=== PATIENT | female | born 1985 | race Caucasian/White ===

== ENCOUNTER 2018-10-27 03:38 | Emergency (ER) | payer OTHER ==
[2018-10-27 03:49] VITALS: BMI 24.1
[2018-10-27 03:50] VITALS: O2SAT 100
[2018-10-27] MEDS ORDERED: Sodium Chloride 0.9% 1,000 ML IV STA (04:01)
[2018-10-27] MEDS ORDERED: Morphine 2 mg/ml ISec IVP STA (04:01)
[2018-10-27 04:23] LABS: HEMOGLOBIN 11.2 g/dL (12.0-16.0); MEAN CELL VOLUME 82.1 fl (80.0-105.0); MEAN CORPUSCULAR HEMOGLOBIN 27.5 pg (25.0-35.0); MEAN CORPUSCULAR HGB CONC 33.4 g/dl (31.0-37.0); MEAN PLATELET VOLUME 10.8 fl (7.0-11.0); RBC 4.08 10^6/uL (3.5-6.1); RED CELL DISTRIBUTION WIDTH 13.8 % (11.5-14.5); WHITE BLOOD COUNT 7.2 10^3/uL (4.5-11.0)
[2018-10-27 04:31] LABS: ALB/GLOB RATIO 1.3 (1.1-1.8); ALBUMIN 4.3 g/dL (3.0-4.8); ALT/SGPT 12 U/L (7-56); AST/SGOT 25 U/L (14-36); BLOOD UREA NITROGEN 12 mg/dL (7-21); CALCIUM 9.5 mg/dL (8.4-10.5); GFR NON-AFRICAN AMERICAN > 60
--- NOTE | 2018-10-27 05:01 | ED PDOC ---
Arrival/HPI - General Chief Complaint: Female Genitourinary Time Seen by Provider: 10/27/18 03:56 Historian: Patient - History of Present Illness Narrative History of Present Illness (Text): 10/27/18 04:58 33 year old female, who is , and currently 5-6 weeks , presents to the emergency department with pelvic cramping and vaginal bleeding. Patient's states she was seen by her funeral director/embalmer a week prior and was told there was no heart beat after US was performed. Patient denies any fever or chills. Patient also denies any headache, dizziness, chest pain, shortness of breath, cough, or any other complaint. Time/Duration: Prior to Arrival Symptom Onset: Gradual Symptom Course: Unchanged Quality: Cramping Activities at Onset: Light Context: Home Past Medical History - Provider Review Nursing Documentation Reviewed: Yes - Cardiac Hx Cardiac Disorders: No - Psychiatric Hx Substance Use: No - Anesthesia Hx Anesthesia: No Family/Social History - Physician Review Nursing Documentation Reviewed: Yes Family/Social History: No Known Family HX Smoking Status: Never Smoked Hx Alcohol Use: No Hx Substance Use: No Allergies/Home Meds Allergies/Adverse Reactions: Allergies No Known Allergies Allergy (Verified 10/27/18 03:49) Home Medications: Home Meds Medication Instructions Recorded Confirmed No Known Home Med 10/27/18 10/27/18 Review of Systems - Physician Review All systems were reviewed & negative as marked: Yes - Review of Systems Constitutional: absent: Fevers, Night Sweats Respiratory: absent: SOB, Cough Cardiovascular: absent: Chest Pain Gastrointestinal: Abdominal Pain Genitourinary Female: Vaginal Bleeding Neurological: absent: Headache, Dizziness Physical Exam Vital Signs Reviewed: Yes Vital Signs Temp Pulse Resp BP Pulse Ox 10/27/18 04:18 122/73 10/27/18 03:48 97.9 F 84 20 98/74 L 100 Temperature: Afebrile Blood Pressure: Hypotensive Pulse: Regular Respiratory Rate: Normal Appearance: Positive for: Well-Appearing, Non-Toxic, Comfortable Pain Distress: None Mental Status: Positive for: Alert and Oriented X 3 - Systems Exam Head: Present: Atraumatic, Normocephalic Pupils: Present: PERRL Extroacular Muscles: Present: EOMI Conjunctiva: Present: Normal Mouth: Present: Moist Mucous Membranes Neck: Present: Normal Range of Motion Respiratory/Chest: Present: Clear to Auscultation, Good Air Exchange. No: Respiratory Distress, Accessory Muscle Use Cardiovascular: Present: Regular Rate and Rhythm, Normal S1, S2. No: Murmurs Abdomen: No: Tenderness, Distention, Peritoneal Signs Genitourinary/Pelvic Exam: Present: Normal External Genitalia, Cervical os Closed. No: Vaginal Discharge, Vaginal Bleeding, Cervical Motion Tendernes Back: Present: Normal Inspection Upper Extremity: Present: Normal Inspection. No: Cyanosis, Edema Lower Extremity: Present: Normal Inspection. No: Edema Neurological: Present: GCS=15, CN II-XII Intact, Speech Normal, Motor Func Grossly Intact, Normal Sensory Function Skin: Present: Warm, Dry, Normal Color. No: Rashes Psychiatric: Present: Alert, Oriented x 3, Normal Insight, Normal Concentration Medical Decision Making ED Course and Treatment: 10/27/18 05:02 Impression: 33 year old female presents with vaginal bleeding and cramping Plan: -- Labs -- Morphine -- Transvaginal US -- Reassess and disposition Prior Visits: Notes and results from previous visits were reviewed. Progress Notes: 10/27/18 05:42 Obstetric ultrasound, transvaginal. Indication: Bleeding. Technique: Real-time ultrasound images are obtained. Findings: The uterus is normal in size measuring 10x5.7x8.9 cm. Anteverted uterus. Cervical length measures 4.3 cm. Intrauterine gestational sac. Mean gestational sac diameter is 3.1 cm. This corresponds to an estimated gestational age of 8 weeks. The yolk sac measures 2.1 mm. No evidence of pole. No free fluid in the pelvic cul-de-sac. Unremarkable ovaries. Impression: Single, intrauterine gestation. No abnormalities seen. 10/27/18 06:35 Patient with relief of symptoms in ED with normal vital signs.Case was discussed with GSE MECHANIC covering for patients GSE MECHANIC .Patient findings are strongly suggestive of missed as was suggested to her on her previous visit to . recommends patient follow up with todays scheduled appointment at office. - Lab Interpretations Lab Results: Total Bilirubin 1.0 mg/dL (0.2-1.3) 10/27/18 04:05 AST 25 U/L (14-36) 10/27/18 04:05 ALT 12 U/L (7-56) 10/27/18 04:05 Alkaline Phosphatase 53 U/L (38-126) 10/27/18 04:05 Total Protein 7.5 g/dL (5.8-8.3) 10/27/18 04:05 Albumin 4.3 g/dL (3.0-4.8) 10/27/18 04:05 Globulin 3.2 gm/dL 10/27/18 04:05 Albumin/Globulin Ratio 1.3 (1.1-1.8) 10/27/18 04:05 - RAD Interpretation Radiology Orders: 10/27/18 04:01 TRANSVAGINAL [US] Stat - Medication Orders Current Medication Orders: Sodium Chloride (Sodium Chloride 0.9%) 1,000 mls @ 999 mls/hr IV .Q1H1M STA Stop: 10/27/18 05:01 Last Admin: 10/27/18 04:17 Dose: 999 mls/hr eMAR Start Stop Document 10/27/18 04:17 IT (Rec: 10/27/18 04:17 IT [email or web address]) Intravenous Solution Start Date 10/27/18 Start Time 04:17 Discontinued Medications Morphine Sulfate (Morphine) 2 mg IVP STAT STA Stop: 10/27/18 04:02 Last Admin: 10/27/18 04:23 Dose: 2 mg MAR Pain Assessment Document 10/27/18 04:23 IT (Rec: 10/27/18 04:24 IT [facility] [email or web address]) Pain Reassessment Is this a pain reassessment? No Sleep Is patient sleeping during reassessment? No Presence of Pain Presence of Pain Yes Pain Scale Used Protocol: PSCALES Pain Scale Used Numeric IVP Administration Document 10/27/18 04:23 IT (Rec: 10/27/18 04:24 IT [email or web address]) Charges for Administration # of IVP Administrations 1 - Scribe Statement The provider has reviewed the documentation as recorded by the Amyibabdifatah Marshall Provider Scribe Attestation: All medical record entries made by the Scribe were at my direction and personally dictated by me. I have reviewed the chart and agree that the record accurately reflects my personal performance of the history, physical exam, medical decision making, and the department course for this patient. I have also personally directed, reviewed, and agree with the discharge instructions and disposition. Disposition/Present on Arrival - Present on Arrival Any Indicators Present on Arrival: No History of DVT/PE: No History of Uncontrolled Diabetes: No Urinary Catheter: No History of Decub. Ulcer: No History Surgical Site Infection Following: None - Disposition Have Diagnosis and Disposition been Completed?: Yes Diagnosis: Missed Disposition: HOME/ ROUTINE Disposition Time: 06:38 Patient Plan: Discharge Condition: GOOD Discharge Instructions (ExitCare): Miscarriage (DC) Additional Instructions: Follow up with your photogrammetric compilation specialist today as scheduled. Forms: [employer] (German)
[2018-10-27 06:45] VITALS: BP 116/78; PULSE 73; RESP 18; TEMP 98
--- NOTE | 2018-10-27 10:57 | US ---
Date of service: 10/27/2018 PROCEDURE: OB Pelvic Ultrasound HISTORY: pain 08/16/2018 COMPARISON: None available. FINDINGS: UTERUS: Gestational sac: Sac diameter is 31 mm equivalent to 8 weeks 0 days. No identifiable pole. No identifiable cardiac activity. 2 mm yolk sac visualized. age (Ultrasound estimated): 8 weeks 0 days Gabby-gestational hemorrhage: None. Date of delivery (Ultrasound estimated) : 06[birth year]08/2018 Uterus measures 10.0 x 5.7 x 8.9 cm. Normal in size and appearance. CERVIX: Measures 4.3 cm. Long and closed. No cervical abnormality seen. RIGHT OVARY: Measures 2.8 x 2.1 x 2.9 cm. No mass lesion. Normal flow. LEFT OVARY: Measures 2.9 x 2.8 x 2.9 cm. No solid mass. Normal flow. FREE FLUID: None. OTHER FINDINGS: None. IMPRESSION: Intrauterine gestation with 8 weeks 0 day gestational sac and no identifiable pole. No identifiable cardiac activity. Findings consistent with demise. No subchorionic hemorrhage. No other significant abnormality. The preliminary findings for this examination were reported by [facility] at 5:39 a.m. on 10/27/2018. There is discordance of this report with the preliminary findings. demise was not specifically described by this report.
== END 2018-10-27 06:45 | disposition home or self-care (01) ==
LOC: ED 03:38
DX: O02.1 Missed abortion (principal); Z3A.08 8 weeks gestation of pregnancy
CPT/HCPCS: 76817; 80053; 84702; 85027; 86850; 86900; 96374; 99283; J2270; J7030